=== PATIENT | female | born 1995 | race Caucasian/White ===

== ENCOUNTER 2019-04-09 19:38 | Emergency (ER) | payer BC ==
[2019-04-09] MEDS ORDERED: Ondansetron 4 MG/2 ML SDV IVPUSH ONE (20:09)
[2019-04-09] MEDS ORDERED: diphenhydrAMINE 50 MG/ML SDV IVPUSH ONE (20:09)
[2019-04-09] MEDS ORDERED: Ketorolac 30 MG/ML SDV IVPUSH ONE (20:09)
[2019-04-09] MEDS ORDERED: Sodium Chloride 0.9% 1,000 ML IV ONE (20:09)
--- NOTE | 2019-04-09 20:31 | EDM.PDOC ---
ED HPI GENERAL MEDICAL PROBLEM - General Chief Complaint: Headache Stated Complaint: MIGRAINE Time Seen by Provider: 04/09/19 19:49 Source of Information: Reports: Patient History Limitations: Reports: No Limitations - History of Present Illness INITIAL COMMENTS - FREE TEXT/NARRATIVE: Presents reporting migraine headache. Patient has a long history of migraine headache and this is the same character and location as her usual headaches. Located on right for head radiating around the ear and to the base of the skull Is accompanied by nausea and "feels like my eyes are bouncing around". She used to take Fioricet for her migraines but she ran out and has not had a prescription. She has had her current headache since 3 AM this morning. Treatments SCRAPER HAND: Reports: Other (see below) Other Treatments SCRAPER HAND: Naproxen head Pain Score (Numeric/FACES): 8 - Related Data Allergies Allergy/AdvReac Type Severity Reaction Status Date / Time tramadol Allergy Itching Verified 04/09/19 20:01 Home Meds: Home Meds Gabapentin [Neurontin] 1 tab PO DAILY 04/09/19 [History] Past Medical History Musculoskeletal History: Reports: Fibromyalgia - Past Surgical History Female Surgical History: Reports: Breast Reconstruction Social & Family History - Family History Family Medical History: Noncontributory - Tobacco Use Smoking Status *Q: Never Smoker - Recreational Drug Use Recreational Drug Use: No ED ROS GENERAL - Review of Systems Review Of Systems: ROS reveals no pertinent complaints other than HPI. - Physical Exam Exam: See Below Exam Limited By: No Limitations General Appearance: Alert, No Apparent Distress, Other (Photophobia) Ears: Normal External Exam, Normal TMs Nose: Normal Inspection Throat/Mouth: Normal Inspection Head Exam: Atraumatic, Normocephalic Neck: Normal Inspection Respiratory/Chest: No Respiratory Distress, Lungs Clear, Normal Breath Sounds Cardiovascular: Normal Peripheral Pulses, Regular Rate, Rhythm, No Murmur Neuro Exam (Abbreviated): Alert, Oriented, CN II-XII Intact, Normal Cognition, No Motor/Sensory Deficits Back Exam: Normal Inspection, Full Range of Motion Extremities: Normal Inspection Psychiatric: Normal Affect, Normal Mood Skin Exam: Warm, Dry, Intact, Normal Color, No Rash Course - Vital Signs Last Recorded V/S: Last Vital Signs Temp 36.6 C 04/09/19 19:50 Pulse 84 04/09/19 19:50 Resp 18 04/09/19 19:50 BP 142/83 H 04/09/19 19:50 Pulse Ox 95 04/09/19 19:50 - Orders/Labs/Meds Meds: Medications Discontinued Medications Generic Name Dose Route Start Last Admin Trade Name Mable PRN Reason Stop Dose Admin Diphenhydramine HCl 50 mg 04/09/19 20:09 04/09/19 20:25 Benadryl IVPUSH 04/09/19 20:10 50 mg ONETIME ONE Administration Sodium Chloride 1,000 mls @ 999 mls/hr 04/09/19 20:09 04/09/19 20:20 Normal Saline IV 04/09/19 21:09 999 mls/hr STAT ONE Administration Ketorolac Tromethamine 30 mg 04/09/19 20:09 04/09/19 20:23 Toradol IVPUSH 04/09/19 20:10 30 mg ONETIME ONE Administration Ondansetron HCl 4 mg 04/09/19 20:09 04/09/19 20:20 Zofran IVPUSH 04/09/19 20:10 4 mg ONETIME ONE Administration - Re-Assessments/Exams Free Text/Narrative Re-Assessment/Exam: 04/09/19 21:20 Headache much improved Departure - Departure Time of Disposition: 21:21 Disposition: Home, Self-Care 01 Clinical Impression: Migraine headache Qualifiers: Migraine type: unspecified Status migrainosus presence: without status migrainosus Intractability: not intractable Qualified Code(s): G43.909 - Migraine, unspecified, not intractable, without status migrainosus - Discharge Information Referrals: PCP,None [Primary Care Provider] - [facility] [Outside] [facility] [Outside] Forms: ED Department Discharge Additional Instructions: 1. Establish and follow up in primary care for appropriate migraine prophylaxis 2. No driving or operating machinery today as you have been given IV medications.
== END 2019-04-09 21:30 | disposition home or self-care (01) ==
LOC: MW.ED 19:38
DX: G43.909 Migraine, unspecified, not intractable, without status migrainosus (principal); Z88.5 Allergy status to narcotic agent
CPT/HCPCS: 96361; 96374; 96375; 99283; J1200; J1885; J2405; J7040

== ENCOUNTER 2019-06-03 12:30 | Emergency (ER) | payer SELFPAY ==
--- NOTE | 2019-06-03 12:49 | EDM.PDOC ---
ED HPI GENERAL MEDICAL PROBLEM - General Chief Complaint: Lower Extremity Injury/Pain Stated Complaint: HIP INJURY Time Seen by Provider: 06/03/19 12:49 Source of Information: Reports: Patient History Limitations: Reports: No Limitations - History of Present Illness INITIAL COMMENTS - FREE TEXT/NARRATIVE: HISTORY AND PHYSICAL: History of present illness: Patient is a 24-year-old female presents to the ED with complaint of left hip pain. She states she has a lot of musculoskeletal problems since being in the [employer] 6 years ago. She has a history of multiple joint injuries including bilateral femur fractures and history of both hips dislocating. She is normally ambulatory in her home but uses a wheelchair to go longer distances. She states she woke up in the middle of the night 2 days ago with left hip pain. She states she felt like her hip was dislocated so she put it back in as she has done many times in the past. She reports the next morning she was unable to bear weight on it and still unable to bear weight today which prompted her to come to the ED. She states her right hamstring feels tight but denies any distal pain, numbness or tingling. Review of systems: As per history of present illness and below otherwise all systems reviewed and negative. Past medical history: As per history of present illness and as reviewed below otherwise noncontributory. Surgical history: As per history of present illness and as reviewed below otherwise noncontributory. Social history: No reported history of drug or alcohol abuse. Family history: As per history of present illness and as reviewed below otherwise noncontributory. Physical exam: General: Patient sitting comfortably in no acute distress and nontoxic appearing HEENT: Atraumatic, normocephalic, pupils reactive, negative for conjunctival pallor or scleral icterus, mucous membranes moist, throat clear, neck supple, nontender, trachea midline. No meningeal signs. Lungs: Clear to auscultation, breath sounds equal bilaterally, chest nontender. Heart: S1S2, regular, negative for clicks, rubs, or overt murmur. Abdomen: Soft, nondistended, nontender. Negative for masses or hepatosplenomegaly. Negative for costovertebral tenderness. No rigidity, rebound , guarding. Pelvis: Stable nontender. Genitourinary: Deferred. Rectal: Deferred. Extremities: Pain to palpation of the left lateral hip, pain with internal rotation of the hip. Atraumatic, negative for cords or calf pain. Neurovascular unremarkable. Neuro: Awake, alert, oriented. Cranial nerves II through XII unremarkable. Cerebellum unremarkable. Motor and sensory unremarkable throughout. Exam nonfocal. Notes: Diagnostics: x-ray left hip with pelvis Therapeutics: Toradol 60mg IM Prescriptions: Tylenol #3 (12) Impression: Left hip pain Plan: Ice and tylenol or motrin as needed. May take Tylenol #3 As needed for severe pain, do not take while driving as this may make you drowsy Follow up with primary care provider and orthopedics Return to ED as needed as discussed Definitive disposition and diagnosis as appropriate pending reevaluation and review of above. Left Hip Pain Score (Numeric/FACES): 8 - Related Data Allergies Allergy/AdvReac Type Severity Reaction Status Date / Time tramadol Allergy Itching Verified 06/03/19 12:43 Home Meds: Home Meds Gabapentin [Neurontin] 300 tab PO DAILY 04/09/19 [History] Folic Acid 4 mg PO DAILY 06/03/19 [History] Past Medical History Musculoskeletal History: Reports: Fibromyalgia - Past Surgical History Female Surgical History: Reports: Breast Reconstruction Social & Family History - Family History Family Medical History: Noncontributory Review of Systems - Review of Systems Review Of Systems: ROS reveals no pertinent complaints other than HPI. ED EXAM, GENERAL - Physical Exam Exam: See Below (see dictation) Course - Vital Signs Last Recorded V/S: Last Vital Signs Temp 97.6 F 06/03/19 12:45 Pulse 87 06/03/19 12:51 Resp 17 06/03/19 12:45 BP 141/89 H 06/03/19 12:45 Pulse Ox 97 06/03/19 12:51 - Orders/Labs/Meds Labs: Laboratory Tests 06/03/19 Range/Units 12:53 Urine HCG, Qual NEGATIVE (NEGATIVE) Meds: Medications Discontinued Medications Generic Name Dose Route Start Last Admin Trade Name Freq PRN Reason Stop Dose Admin Ketorolac Tromethamine 60 mg 06/03/19 12:55 06/03/19 13:03 Toradol IM 06/03/19 12:56 60 mg ONETIME ONE Administration Departure - Departure Time of Disposition: 14:17 Disposition: Home, Self-Care 01 Condition: Good Clinical Impression: Left hip pain - Discharge Information Referrals: [facility] [Primary Care Provider] - Forms: ED Department Discharge Additional Instructions: The following information is given to patients seen in the emergency department who are being discharged to home. This information is to outline your options for follow-up care. We provide all patients seen in our emergency department with a follow-up referral. The need for follow-up, as well as the timing and circumstances, are variable depending upon the specifics of your emergency department visit. If you don't have a primary care physician on staff, we will provide you with a referral. We always advise you to contact your personal physician following an emergency department visit to inform them of the circumstance of the visit and for follow-up with them and/or the need for any referrals to a consulting specialist. The emergency department will also refer you to a specialist when appropriate. This referral assures that you have the opportunity for follow-up care with a specialist. All of these measure are taken in an effort to provide you with optimal care, which includes your follow-up. Under all circumstances we always encourage you to contact your private physician who remains a resource for coordinating your care. When calling for follow-up care, please make the office aware that this follow-up is from your recent emergency room visit. If for any reason you are refused follow-up, please contact the [facility] Emergency Department at and asked to speak to the emergency department charge nurse. [facility] [address] [place] [id number] [address] [facility] - [facility] Professional Building [address], [address] [place] [address] Ice and tylenol or motrin as needed. May take Tylenol #3 As needed for severe pain, do not take while driving as this may make you drowsy Follow up with primary care provider and orthopedics Return to ED as needed as discussed
[2019-06-03] MEDS ORDERED: Ketorolac 60 MG/2 ML SDV IM ONE (12:55)
--- NOTE | 2019-06-03 14:11 | CR ---
EXAMINATION: Pelvis and left hip HISTORY: Pain COMPARISON: None TECHNIQUE: AP pelvis and 2 views of the left hip FINDINGS: There is no acute osseous abnormality, dislocation, or fracture. Bone mineralization and joint spaces are preserved. SI joints are symmetric. The iliopectineal lines are intact. IMPRESSION: No acute osseous abnormality.
== END 2019-06-03 14:24 | disposition home or self-care (01) ==
LOC: MW.ED 12:30
DX: M25.552 Pain in left hip (principal); Z88.5 Allergy status to narcotic agent
CPT/HCPCS: 73502; 81025; 96372; 99283; J1885

== ENCOUNTER 2019-08-24 11:20 | Emergency (ER) | payer SELFPAY ==
--- NOTE | 2019-08-24 11:40 | EDM.PDOC ---
ED HPI GENERAL MEDICAL PROBLEM - General Chief Complaint: IMPLEMENTATION COORDINATOR Problem Stated Complaint: 6 WEEKS PREG--BLEEDING Time Seen by Provider: 08/24/19 11:24 - History of Present Illness INITIAL COMMENTS - FREE TEXT/NARRATIVE: HISTORY AND PHYSICAL: History of present illness: The patient is a 24-year-old female who is a 2 para 0 and was last regular period was July 11 with an estimated gestational age of 6 weeks and 2 days by a confirmed tests at home and she was an appointment with [facility] to start a care and presents with complaints of seeing mucousy blood when she wipes after going to the bathroom that started this morning. Patient says that she has had on-and-off nausea but no significant vomiting and has had no abdominal or pelvic pain. Her last sexual intercourse was several days ago and she's had no flank pain urinary complaints and has been eating and drinking normally. She says that this morning when she wiped after going to the bathroom she noticed the mucousy blood and it has persisted but she has not had to use a pad. She has not passed any tissue or clots. The patient does have a history of fibromyalgia and some other bone issues she says she has no abdominal or gynecological history. She has no STD risks or history. Review of systems: As per history of present illness and below otherwise all systems reviewed and negative. Past medical history: As per history of present illness and as reviewed below otherwise noncontributory. Surgical history: As per history of present illness and as reviewed below otherwise noncontributory. Social history: No reported history of drug or alcohol abuse. Family history: As per history of present illness and as reviewed below otherwise noncontributory. Physical exam: General: Well-developed well-nourished female who is somewhat tearful and evaluation but is nontoxic and vital signs are noted by me HEENT: Atraumatic, normocephalic, negative for conjunctival pallor or scleral icterus, mucous membranes moist, throat clear, neck supple, nontender, trachea midline. Lungs: Clear to auscultation, breath sounds equal bilaterally, chest nontender. Heart: S1S2, regular rate and rhythm no murmurs Abdomen: Soft, nondistended, nontender. Negative for masses or hepatosplenomegaly. Negative for costovertebral tenderness. Pelvis: Stable nontender. Genitourinary: Deferred. Rectal: Deferred. Extremities: Atraumatic, full range of motion Neurovascular unremarkable. Neuro: Awake, alert, oriented. Cranial nerves II through XII unremarkable. Cerebellum unremarkable. Motor and sensory unremarkable throughout. Exam nonfocal. Diagnostics: CBC serum quantitative hCG UA UCG ABO Rh pelvic ultrasound Therapeutics: Patient and boyfriend at bedside are aware of all testing results and the case was discussed with Dr. Campa at 1 PM. She agrees to repeat the serum quantitative hCG in 2 days and for the patient to call her office on Monday to schedule a follow-up appointment. The patient is aware of strict pelvic rest need for hydration and reasons to return to the ED. Impression: Version versus non-progressing Definitive disposition and diagnosis as appropriate pending reevaluation and review of above. - Related Data Allergies Allergy/AdvReac Type Severity Reaction Status Date / Time tramadol Allergy Itching Verified 08/24/19 11:30 Home Meds: Home Meds . [No Known Home Meds] 08/24/19 [History] DULoxetine [Cymbalta] 60 mg PO DAILY 08/24/19 [History] Past Medical History Musculoskeletal History: Reports: Fibromyalgia - Infectious Disease History Infectious Disease History: Reports: None - Past Surgical History Female Surgical History: Reports: Breast Reconstruction Social & Family History - Family History Family Medical History: Noncontributory - Caffeine Use Caffeine Use: Reports: Coffee, Energy Drinks ED ROS GENERAL - Review of Systems Review Of Systems: ROS reveals no pertinent complaints other than HPI. ED EXAM, GENERAL - Physical Exam Exam: See Below (See dictation) Course - Vital Signs Last Recorded V/S: Last Vital Signs Temp 36.3 C 08/24/19 11:31 Pulse 109 H 08/24/19 11:31 Resp 16 08/24/19 11:31 BP 144/110 H 08/24/19 11:31 Pulse Ox 97 08/24/19 11:31 - Orders/Labs/Meds Labs: Laboratory Tests 08/24/19 08/24/19 08/24/19 Range/Units 11:30 11:30 11:40 WBC 6.73 (4.0-11.0) K/uL RBC 4.83 (4.30-5.90) M/uL Hgb 15.8 (12.0-16.0) g/dL Hct 44.5 (36.0-46.0) % MCV 92.1 (80.0-98.0) fL MCH 32.7 H (27.0-32.0) pg MCHC 35.5 (31.0-37.0) g/dL RDW Std Deviation 41.5 (28.0-62.0) fl RDW Coeff of Rodolfo 12 (11.0-15.0) % Plt Count 215 (150-400) K/uL MPV 9.50 (7.40-12.00) fL Neut % (Auto) 61.5 (48.0-80.0) % Lymph % (Auto) 29.6 (16.0-40.0) % [place] % (Auto) 7.9 (0.0-15.0) % Eos % (Auto) 0.7 (0.0-7.0) % Baso % (Auto) 0.3 (0.0-1.5) % Neut # (Auto) 4.1 (1.4-5.7) K/uL Lymph # (Auto) 2.0 (0.6-2.4) K/uL [place] # (Auto) 0.5 (0.0-0.8) K/uL Eos # (Auto) 0.1 (0.0-0.7) K/uL Baso # (Auto) 0.0 (0.0-0.1) K/uL Nucleated RBC % 0.0 /100WBC Nucleated RBCs # 0 K/uL HCG, Quant mIU/mL Urine Color DARK YELLOW Urine Appearance CLEAR Urine pH 7.0 (5.0-8.0) Ur Specific [place] 1.015 (1.001-1.035) Urine Protein NEGATIVE (NEGATIVE) mg/dL Urine Glucose (UA) NEGATIVE (NEGATIVE) mg/dL Urine Ketones NEGATIVE (NEGATIVE) mg/dL Urine Occult Blood TRACE-INTACT H (NEGATIVE) Urine Nitrite NEGATIVE (NEGATIVE) Urine Bilirubin NEGATIVE (NEGATIVE) Urine Urobilinogen 0.2 (<2.0) EU/dL Ur Leukocyte Esterase NEGATIVE (NEGATIVE) Urine RBC 0-1 (0-2/HPF) Urine WBC 0-1 (0-5/HPF) Ur Epithelial Cells FEW (NONE-FEW) Urine Bacteria FEW (NEGATIVE) Urine HCG, Qual POSITIVE (NEGATIVE) Blood Type 08/24/19 08/24/19 Range/Units 11:40 11:40 WBC (4.0-11.0) K/uL RBC (4.30-5.90) M/uL Hgb (12.0-16.0) g/dL Hct (36.0-46.0) % MCV (80.0-98.0) fL MCH (27.0-32.0) pg MCHC (31.0-37.0) g/dL RDW Std Deviation (28.0-62.0) fl RDW Coeff of Rodolfo (11.0-15.0) % Plt Count (150-400) K/uL MPV (7.40-12.00) fL Neut % (Auto) (48.0-80.0) % Lymph % (Auto) (16.0-40.0) % [place] % (Auto) (0.0-15.0) % Eos % (Auto) (0.0-7.0) % Baso % (Auto) (0.0-1.5) % Neut # (Auto) (1.4-5.7) K/uL Lymph # (Auto) (0.6-2.4) K/uL [place] # (Auto) (0.0-0.8) K/uL Eos # (Auto) (0.0-0.7) K/uL Baso # (Auto) (0.0-0.1) K/uL Nucleated RBC % /100WBC Nucleated RBCs # K/uL HCG, Quant 671.0 mIU/mL Urine Color Urine Appearance Urine pH (5.0-8.0) Ur Specific [place] (1.001-1.035) Urine Protein (NEGATIVE) mg/dL Urine Glucose (UA) (NEGATIVE) mg/dL Urine Ketones (NEGATIVE) mg/dL Urine Occult Blood (NEGATIVE) Urine Nitrite (NEGATIVE) Urine Bilirubin (NEGATIVE) Urine Urobilinogen (<2.0) EU/dL Ur Leukocyte Esterase (NEGATIVE) Urine RBC (0-2/HPF) Urine WBC (0-5/HPF) Ur Epithelial Cells (NONE-FEW) Urine Bacteria (NEGATIVE) Urine HCG, Qual (NEGATIVE) Blood Type O POSITIVE Departure - Departure Time of Disposition: 13:23 Disposition: Home, Self-Care 01 Condition: Good Clinical Impression: Threatened - Discharge Information Referrals: Ronnell Smyth NP [Primary Care Provider] - Forms: ED Department Discharge Additional Instructions: The following information is given to patients seen in the emergency department who are being discharged to home. This information is to outline your options for follow-up care. We provide all patients seen in our emergency department with a follow-up referral. The need for follow-up, as well as the timing and circumstances, are variable depending upon the specifics of your emergency department visit. If you don't have a primary care physician on staff, we will provide you with a referral. We always advise you to contact your personal physician following an emergency department visit to inform them of the circumstance of the visit and for follow-up with them and/or the need for any referrals to a consulting specialist. The emergency department will also refer you to a specialist when appropriate. This referral assures that you have the opportunity for followup care with a specialist. All of these measure are taken in an effort to provide you with optimal care, which includes your followup. Under all circumstances we always encourage you to contact your private physician who remains a resource for coordinating your care. When calling for followup care, please make the office aware that this follow-up is from your recent emergency room visit. If for any reason you are refused follow-up, please contact the [facility] emergency department at and ask to speak to the emergency department charge nurse. [facility] [address] [place] [id number] Strict pelvic rest as we discussed and get your blood drawn and her labs repeated on Monday as we discussed. Please contact [facility] on Monday to schedule a follow-up appointment and return to ER as needed and as discussed.
--- NOTE | 2019-08-24 12:21 | US ---
INDICATION: History of positive test, vaginal bleeding TECHNIQUE: Ultrasound OB pelvis transvaginal. Real time seharer scale imaging of the pelvis was performed. COMPARISON: None available FINDINGS: There is a sac-like structure within the right aspect of the endometrium. This may represent a gestational sac and measures 0.3 cm, which correlates with a gestational age of approximately 4 weeks and 6 days. No pole is visualized. No yolk sac is seen. The right ovary measures 2.0 x 2.3 x 2.9 cm and contains multiple normal appearing follicles. There is normal color and spectral flow. The left ovary measures 2.0 x 2.5 x 2.7 cm and contains multiple normal-appearing follicles. Normal color and spectral flow visualized. No adnexal mass is seen. No free fluid is visualized. IMPRESSION: Sac-like structure within the right aspect of the endometrium without a visualized pole, may represent a normal very early intrauterine , however other differential considerations include missed miscarriage or nonvisualized ectopic. Recommend correlation with serial beta HCG and follow-up ultrasound. Dictated by Kaley Burgos MD @ 08/24/2019 12:19:20 PM Dictated by: Kaley Burgos MD @ 08/24/2019 12:20:14 (Electronically Signed)
== END 2019-08-24 13:28 | disposition home or self-care (01) ==
LOC: MW.ED 11:20
DX: O20.0 Threatened abortion (principal); Z88.6 Allergy status to analgesic agent; Z3A.01 Less than 8 weeks gestation of pregnancy
CPT/HCPCS: 36415; 76801; 76801-26; 81001; 81025; 84702; 85025; 86900; 86901; 99284-25

== ENCOUNTER 2019-08-25 18:22 | Emergency (ER) | payer SELFPAY ==
--- NOTE | 2019-08-25 18:57 | EDM.PDOC ---
ED HPI GENERAL MEDICAL PROBLEM - General Chief Complaint: [employer] Problem Stated Complaint: 6weeks possible miscarriage Time Seen by Provider: 08/25/19 18:47 Source of Information: Reports: Patient History Limitations: Reports: No Limitations - History of Present Illness INITIAL COMMENTS - FREE TEXT/NARRATIVE: HISTORY AND PHYSICAL: History of present illness: Patient is a 24-year-old female who presents to the ED today after she was seen in the ED yesterday for threatened miscarriage. Patient states since her evaluation yesterday she has had more bleeding. Patient states she has worn 1 pad and has had to change it every 5 hours. Patient states initially the bleeding was dark brown this morning but has become a little bit more red. Patient states she did pass one small clot. Patient states that she did have some lower abdominal cramping last night and this morning but is not currently having cramping. Patient denies fever, chills, chest pain, shortness of breath, or cough. Denies headache, neck stiff ness, change in vision, syncope, or near syncope. Denies nausea, vomiting, abdominal pain, diarrhea, constipation, or dysuria. Has not noted any blood in urine or stool. Patient has been eating and drinking appropriately. Review of systems: As per history of present illness and below otherwise all systems reviewed and negative. Past medical history: As per history of present illness and as reviewed below otherwise noncontributory. Surgical history: As per history of present illness and as reviewed below otherwise noncontributory. Social history: See social history for further information Family history: As per history of present illness and as reviewed below otherwise noncontributory. Physical exam: General: Patient is alert, oriented, and in no acute distress. Patient sitting comfortably on exam table. HEENT: Atraumatic, normocephalic, pupils equal and reactive bilaterally, negative for conjunctival pallor or scleral icterus, mucous membranes moist, TMs normal bilaterally, throat clear, neck supple, nontender, trachea midline. No drooling or trismus noted. No meningeal signs. No hot potato voice noted. Lungs: Clear to auscultation, breath sounds equal bilaterally, chest nontender. Heart: S1S2, regular rate and rhythm without overt murmur Abdomen: Soft, nondistended, nontender. Negative for masses or hepatosplenomegaly. Negative for costovertebral tenderness. Pelvis: Stable nontender. Genitourinary: External genitalia is grossly unremarkable. There is a moderate amount of dark blood in the vaginal vault. The cervical os is closed. Rectal: Deferred. Skin: Intact, warm, dry. No lesions or rashes noted. Extremities: Atraumatic, negative for cords or calf pain. Neurovascular unremarkable. Neuro: Awake, alert, oriented. Cranial nerves II through XII unremarkable. Cerebellum unremarkable. Motor and sensory unremarkable throughout. Exam nonfocal. Notes: HCG quant yesterday was 671. Today is 550. I did call and speak to Dr. Galen Wiley and she states that patient is likely miscarrying. Per her recommendation, patient is to monitor the bleeding and expected to be typical like a heavy menstrual cycle. Dr. Galen Wiley would like to see patient in the clinic on Monday. Voices understanding and is agreeable to plan of care. Denies any further questions or concerns at this time. Diagnostics: CBC, hCG Quant, TVUS Therapeutics: None Prescription: None Impression: Threatened Plan: 1. Use Tylenol as directed for pain and discomfort. 2. Follow-up with Dr. Galen Wiley at [facility] on Monday as discussed. The number has been provided above to you to call and set up an appointment time. Call tomorrow morning to establish appointment time. 3. Return to the ED as needed and as discussed. Definitive disposition and diagnosis as appropriate pending reevaluation and review of above. Lower Abdomen Pain Score (Numeric/FACES): 8 - Related Data Allergies Allergy/AdvReac Type Severity Reaction Status Date / Time tramadol Allergy Itching Verified 08/25/19 18:34 Home Meds: Home Meds DULoxetine [Cymbalta] 60 mg PO DAILY 08/24/19 [History] Past Medical History - Past Health History Medical/Surgical History: Denies Medical/Surgical History [employer] History: Reports: Musculoskeletal History: Reports: Fibromyalgia Psychiatric History: Reports: Anxiety, Depression - Infectious Disease History Infectious Disease History: Reports: None - Past Surgical History HEENT Surgical History: Reports: Oral Surgery Female Surgical History: Reports: Breast Implant, Breast Reconstruction Social & Family History - Family History Family Medical History: Noncontributory - Tobacco Use Smoking Status *Q: Never Smoker - Caffeine Use Caffeine Use: Reports: Coffee, Energy Drinks - Recreational Drug Use Recreational Drug Use: No ED ROS GENERAL - Review of Systems Review Of Systems: ROS reveals no pertinent complaints other than HPI. ED EXAM, GENERAL - Physical Exam Exam: See Below (See dictation) Course - Vital Signs Last Recorded V/S: Last Vital Signs Temp 97.3 F 08/25/19 18:32 Pulse 6 L 08/25/19 18:32 Resp 18 08/25/19 18:32 BP 146/93 H 08/25/19 18:32 Pulse Ox 99 08/25/19 18:32 - Orders/Labs/Meds Labs: Laboratory Tests 08/25/19 08/25/19 Range/Units 18:59 18:59 WBC 6.80 (4.0-11.0) K/uL RBC 4.58 (4.30-5.90) M/uL Hgb 14.6 (12.0-16.0) g/dL Hct 42.6 (36.0-46.0) % MCV 93.0 (80.0-98.0) fL MCH 31.9 (27.0-32.0) pg MCHC 34.3 (31.0-37.0) g/dL RDW Std Deviation 41.6 (28.0-62.0) fl RDW Coeff of Rodolfo 12 (11.0-15.0) % Plt Count 211 (150-400) K/uL MPV 9.70 (7.40-12.00) fL Neut % (Auto) 62.6 (48.0-80.0) % Lymph % (Auto) 28.1 (16.0-40.0) % [place] % (Auto) 7.6 (0.0-15.0) % Eos % (Auto) 1.3 (0.0-7.0) % Baso % (Auto) 0.4 (0.0-1.5) % Neut # (Auto) 4.3 (1.4-5.7) K/uL Lymph # (Auto) 1.9 (0.6-2.4) K/uL [place] # (Auto) 0.5 (0.0-0.8) K/uL Eos # (Auto) 0.1 (0.0-0.7) K/uL Baso # (Auto) 0.0 (0.0-0.1) K/uL Nucleated RBC % 0.0 /100WBC Nucleated RBCs # 0 K/uL HCG, Quant 550.0 mIU/mL Departure - Departure Time of Disposition: 20:44 Disposition: Home, Self-Care 01 Clinical Impression: Threatened - Discharge Information Referrals: [facility] [Primary Care Provider] - Forms: ED Department Discharge Additional Instructions: The following information is given to patients seen in the emergency department who are being discharged to home. This information is to outline your options for follow-up care. We provide all patients seen in our emergency department with a follow-up referral. The need for follow-up, as well as the timing and circumstances, are variable depending upon the specifics of your emergency department visit. If you don't have a primary care physician on staff, we will provide you with a referral. We always advise you to contact your personal physician following an emergency department visit to inform them of the circumstance of the visit and for follow-up with them and/or the need for any referrals to a consulting specialist. The emergency department will also refer you to a specialist when appropriate. This referral assures that you have the opportunity for follow-up care with a specialist. All of these measure are taken in an effort to provide you with optimal care, which includes your follow-up. Under all circumstances we always encourage you to contact your private physician who remains a resource for coordinating your care. When calling for follow-up care, please make the office aware that this follow-up is from your recent emergency room visit. If for any reason you are refused follow-up, please contact the [facility] Emergency Department at and asked to speak to the emergency department charge nurse. [facility] [address] [place] [id number] [facility] [address] [place] [address] [facility], Dr. Galen Wiley [address] [place] [address] 1. Use Tylenol as directed for pain and discomfort. 2. Follow-up with Dr. Galen Wiley at [facility] on Monday as discussed. The number has been provided above to you to call and set up an appointment time. Call tomorrow morning to establish appointment time. 3. Return to the ED as needed and as discussed.
--- NOTE | 2019-08-25 20:31 | US ---
INDICATION: , pain and vaginal bleeding. TECHNIQUE: Ultrasound pelvis transvaginal for better assessment or to better visualize the endometrium. Real-time sonographic images with spectral and color Doppler imaging of the ovaries were obtained. COMPARISON: Obstetric ultrasound 08/24/2019 FINDINGS: Uterus: 7.0 x 3.6 x 5.4 cm. Normal echotexture of the myometrium. No masses. Endometrium: 2 millimeter hypoechoic area within the endometrial cavity. Right ovary measures 1.8 x 2.5 x 2.9 cm and left ovary measures 2.8 x 2.1 x 2.3 cm. No ovarian or adnexal masses. Normal blood flow is demonstrated in both ovaries. Cul-de-sac: No significant free fluid. IMPRESSION: 1. Tiny hypoechoic area identified within the endometrial cavity measuring 2 millimeters which is slightly decreased in size from the study 1 day prior. It is unclear whether this is a small gestational sac or merely a cyst at the margin of the endometrial cavity. Considering the slight change in appearance compared to the study 1 day prior, suspect this is more likely a miscarriage/miscarriage in progress although a normal early would still be a consideration. Ectopic not excluded although none is seen on this exam. Correlation with serial quantitative beta HCG suggested. In clinically confusing cases, follow-up ultrasound in 10-14 days would be suggested. Dictated by Monroe Vital MD @ Aug 25 2019 8:25PM Signed by Dr. Monroe Vital @ Aug 25 2019 8:30PM
== END 2019-08-25 20:55 | disposition home or self-care (01) ==
LOC: MW.ED 18:22
DX: O20.0 Threatened abortion (principal); Z3A.01 Less than 8 weeks gestation of pregnancy
CPT/HCPCS: 36415; 76801; 76801-26; 84702; 85025; 99284-25